=== PATIENT | male | born 1940 | race Two or more races ===

== ENCOUNTER 2021-09-05 09:06 | Outpatient (AMB) | payer MEDICARE, BC, SELFPAY ==
--- NOTE | 2021-09-05 09:33 | URONOTE_ITS ---
Intake Intake Seen by Clinical Staff ONLY (RN/MA): Yes Visit Reasons: Uro Follow up Cath Change Biometrics Specialist Required: No Is patient in pain?: No Allergy Allergies bee venom protein (honey bee) Allergy (Verified 09/05/21 09:41) Home Meds Medication Reconciliation amlodipine 5 mg tablet 5 mg PO QDAY 02/22/20 [History Confirmed 09/05/21] ezetimibe 10 mg tablet (Zetia) 10 mg PO QDAY 02/22/20 [History Confirmed 09/05/21] losartan 25 mg tablet 25 mg PO QDAY 02/22/20 [History Confirmed 09/05/21] dorzolamide 22.3 mg-timolol 6.8 mg/mL eye drops 1 drp OPHTHALMIC (EYE) BID 06/28/21 [History Confirmed 09/05/21] latanoprost 0.005 % eye drops 1 drp OPHTHALMIC (EYE) HS 06/28/21 [History Confirmed 09/05/21] finasteride 5 mg tablet 5 mg PO QDAY 09/04/21 [History Confirmed 09/05/21] tamsulosin 0.4 mg capsule 0.8 mg PO QHS cap 09/04/21 [History Confirmed 09/05/21] Nurse Note: Kierra MCCALL - per Dr. Calvillo order given 120mg of gentamycin after removal of guillen catheter. patient taught intermittent catheterization Nursing Documentation Social History Living Situation History Lives With: Spouse Housing: House Tobacco History Smoking Status: Never smoker Alcohol History Alcohol Intake: Never Alcohol Intake Frequency: holidays/special occasions only Office Procedures Uro DC Catheter DC Catheter Date Urinary Catheter Removed: 09/05/21 Time Urinary Catheter Removed: 09:15 Urinary Catheter Intact After Removal: Yes Medication Given Medication Given Medication Given: Yes Documented Dose Given: 120 Uro Level of Care Nursing/Assessment/Reassessment Patient Status: Established Patient Nursing Assessment/Reassessment: Update [facility] data in EMR and Medication Reconciliation Coordination of Care: Simp Pt/Fam Ed for care Established Patient Point Assignment: 30 Established Patient Point Charge: EP Level 1 (1-35) Procedure IM Injection: Yes Office Meds gentamicin Performing Provider: Chilo Calvillo MD Administered by: Kierra Lepe RN on 09/05/21 09:42 Dose Route Admin Location Lot Number Expiration Date [employer] 120 mg IM [facility] Office Visit Office Visit Date of visit:: September 05, 2021 09:06 Allergies & Home Medications: Allergies bee venom protein (honey bee) Allergy (Verified 09/04/21 13:27) Visit: Reason for visit: [] Office Visit findings: []
== END 2021-09-05 09:50 | disposition home or self-care (01) ==
LOC: HODURO 09:06
PROVIDERS: PCP Family Medicine; Visit Provider Urology

== ENCOUNTER → 2025-02-22 | Outpatient (CLI) | payer MEDICARE, BC, SELFPAY ==
[2025-02-22 10:27] LABS: Prostate Specific Antigen 0.84 ng/mL (0-4.00)
== END | disposition home or self-care (01) ==
LOC: COPL 08:42
PROVIDERS: PCP Family Medicine; Referring Provider Urology; Visit Provider Urology
DX: N40.1 Benign prostatic hyperplasia with lower urinary tract symptoms (principal)
CPT/HCPCS: 36415; 84153

== ENCOUNTER → 2025-02-28 | Outpatient (BNVA) | payer MEDICARE, BC, SELFPAY | END | disposition home or self-care (01) | PROVIDERS: PCP Family Medicine; Referring Provider Family Medicine; Visit Provider Urology | DX: N40.0 Benign prostatic hyperplasia without lower urinary tract symptoms (principal); I12.9 Hypertensive chronic kidney disease with stage 1 through stage 4 chronic kidney disease, or unspecified chronic kidney disease; N18.30 Chronic kidney disease, stage 3 unspecified; I25.10 Atherosclerotic heart disease of native coronary artery without angina pectoris; Z86.718 Personal history of other venous thrombosis and embolism; I25.2 Old myocardial infarction | CPT/HCPCS: 81003; 99212; G0463 ==